=== PATIENT | male | born 1985 | race Caucasian/White ===

== ENCOUNTER 2016-04-23 18:12 | Emergency (ER) | payer OTHER ==
[~2016-04-23] VITALS: Ht 165.1 cm; Wt 69.6 kg
[~2016-04-23 18:12] MED LIST: HYDR-3533 PO; IBUP600 PO; TAMS0.4C67 PO; ZOFR4TAB3 SL
[2016-04-23 18:34] VITALS: BP 115/69; PULSE 97; RESP 20; O2SAT 99
--- NOTE | 2016-04-23 19:13 | PD ---
HPI Chief Complaint: Chest Pain Time Seen by Provider: 19:04 Travel History International Travel<30 days: No Contact w/Intl Traveler<30days: No Traveled to known affect area: No History of Present Illness HPI The patient is a 30-year-old male who complains of a sharp right upper quadrant abdominal pain associated with nausea but no diarrhea, vomiting or fever since noon today. He denies any melanotic or black stools. He does have a history of kidney stones. He has never had pain like this before. He still has his gallbladder and appendix. He does not have gallbladder disease in the family. PFSH Past Medical History Asthma: Yes Diminished Hearing: No Respiratory: Yes (ASTHMA) Immunizations Current: Yes Tetanus Vaccination: > 5 Years Influenza Vaccination: Yes Past Surgical History Abdominal Surgery: Yes (HERNIA REPAIR) Eye Surgery: Yes Tympanostomy Tube: Yes Social History Alcohol Use: Yes (RARELY) Tobacco Use: No Substance Use: No Allergies-Medications (Allergen,Severity, Reaction): Coded Allergies: Penicillin (Verified Allergy, Severe, AIRWAY COMPROMISE, 04/23/16) Reported Meds & Prescriptions Reported Meds & Active Scripts Active Reported Trazodone (Trazodone HCl) 50 Mg Tab 50 Mg PO HS Review of Systems Except as stated in HPI: all other systems reviewed are Neg Physical Exam Narrative GENERAL: The patient is alert, oriented 3 in slight apparent distress with his right upper quadrant pain area his vital signs are normal. SKIN: Warm and dry. No skin rash is present. HEAD: Atraumatic. Normocephalic. EYES: Pupils equal and round. No scleral icterus. No injection or drainage. ENT: No nasal bleeding or discharge. Mucous membranes pink and moist. NECK: Trachea midline. No JVD. CARDIOVASCULAR: Regular rate and rhythm. No murmur appreciated. RESPIRATORY: No accessory muscle use. Clear to auscultation. Breath sounds equal bilaterally. GASTROINTESTINAL: Abdomen soft, with tenderness to direct palpation in the right upper quadrant and Bonds sign is positive., nondistended. Hepatic and splenic margins not palpable. No guarding or rebound is present. MUSCULOSKELETAL: No obvious deformities. No clubbing. No cyanosis. No edema. NEUROLOGICAL: Awake and alert. No obvious cranial nerve deficits. Motor grossly within normal limits. Normal speech. PSYCHIATRIC: Appropriate mood and affect; insight and judgment normal. Data Data Last Documented VS Vital Signs Date Time Temp Pulse Resp B/P Pulse Ox O2 Delivery O2 Flow Rate FiO2 04/23/16 18:48 85 Room Air 04/23/16 18:34 20 115/69 99 Orders Complete Blood Count With Diff (04/23/16 19:14) Comprehensive Metabolic Panel (04/23/16 19:14) Lipase (04/23/16 19:14) Urinalysis - C+S If Indicated (04/23/16 19:14) Ct Abd/Pel W Iv Contrast(Rout) (04/23/16 19:14) Iv Access Insert/Monitor (04/23/16 19:14) Ecg Monitoring (04/23/16 19:14) Oximetry (04/23/16 19:14) Hydromorphone Pf Inj (Dilaudid Pf Inj) (04/23/16 19:15) Ondansetron Inj (Zofran Inj) (04/23/16 19:15) Sodium Chlor 0.9% 1000 Ml Inj (Ns 1000 M (04/23/16 19:14) Sodium Chloride 0.9% Flush (Ns Flush) (04/23/16 19:15) Iohexol 350 Inj (Omnipaque 350 Inj) (04/23/16 20:22) Labs Laboratory Tests Test 04/23/16 04/23/16 19:20 19:30 White Blood Count 7.6 TH/MM3 Red Blood Count 5.40 MIL/MM3 Hemoglobin 15.0 GM/DL Hematocrit 45.0 % Mean Corpuscular Volume 83.3 FL Mean Corpuscular Hemoglobin 27.9 PG Mean Corpuscular Hemoglobin 33.5 % Concent Red Cell Distribution Width 12.8 % Platelet Count 220 TH/MM3 Mean Platelet Volume 9.2 FL Neutrophils (%) (Auto) 66.7 % Lymphocytes (%) (Auto) 22.5 % Monocytes (%) (Auto) 6.7 % Eosinophils (%) (Auto) 0.9 % Basophils (%) (Auto) 3.2 % Neutrophils # (Auto) 5.1 TH/MM3 Lymphocytes # (Auto) 1.7 TH/MM3 Monocytes # (Auto) 0.5 TH/MM3 Eosinophils # (Auto) 0.1 TH/MM3 Basophils # (Auto) 0.2 TH/MM3 CBC Comment DIFF FINAL Differential Comment Sodium Level 139 MEQ/L Potassium Level 4.1 MEQ/L Chloride Level 103 MEQ/L Blood Urea Nitrogen 23 MG/DL Creatinine 1.00 MG/DL Estimat Glomerular Filtration 88 ML/MIN Rate Random Glucose 82 MG/DL Urine Collection Type VOIDED Urine Color STRAW Urine Turbidity SLIGHT Urine pH 7.0 Urine Specific [place] 1.018 Urine Protein NEG mg/dL Urine Glucose (UA) NEG mg/dL Urine Ketones NEG mg/dL Urine Occult Blood NEG Urine Nitrite NEG Urine Bilirubin NEG Urine Leukocyte Esterase NEG Urine Squamous Epithelial 0-5 /hpf Cells Urine Amorphous Sediment MOD Microscopic Urinalysis Comment CULT NOT INDICATED MDM Medical Decision Making Medical Screen Exam Complete: Yes Emergency Medical Condition: Yes Medical Record Reviewed: Yes Interpretation(s) The CT abdomen/pelvis with IV contrast shows no acute abnormality. There are small nonobstructing stones in both kidneys. The CBC is normal. The urinalysis is normal and culture is not indicated. Differential Diagnosis Cholecystitis, cholelithiasis with colic, pancreatitis, colitis, urinary stone Narrative Course The analyzer is broken here and it may be hours before we get a return on some of the blood testing. It is now 9 PM and the patient's pain is completely gone and he has no tenderness in the right upper quadrant. Plan: The patient will given a five-day work excuse, he is given Phenergan and Lortab 5 for pain and he should follow-up with his primary care physician as soon as possible, hopefully this week. Diagnosis Primary Impression: Abdominal pain of unknown etiology Additional Instructions: Ideally, you should follow-up with her primary care physician this week regarding this pain. The CT scan was normal but we still have not ruled out cholelithiasis with colic. At this time the pain has resolved but the pain can return. Do not drink alcohol or drive on the Phenergan or Lortab 5. Med/Other Pt SpecificInfo: Prescription(s) given Scripts Hydrocodone-Acetaminophen (Lortab)5-325 Mg Tab1 Tab PO Q4H PRN (PAIN) #28 TAB Ref 0 Prov:Prudencio Fuentes MD 04/23/16 Promethazine (Phenergan)25 Mg Tab25 Mg PO Q6H PRN (Nausea/Vomiting) #30 TAB Ref 0 Prov:Prudencio Fuentes MD 04/23/16 Disposition: 01 DISCHARGE HOME Condition: Stable Prudencio Fuentes MD Apr 23, 2016 19:13
[2016-04-23] MEDS ORDERED: SODIUM CHLOR 0.9% 1000 ML INJ 1,000 ML IV SCH (19:14)
[2016-04-23] MEDS ORDERED: ONDANSETRON HCL 4 MG/2 ML VIAL IVP ONE (19:15)
[2016-04-23] MEDS ORDERED: HYDROmorphone HCL PF 2 MG/ML VIAL IVS ONE (19:15)
[2016-04-23] MEDS ORDERED: SODIUM CHLORIDE 0.9% FLUSH 5 ML FLUSH IVF PRN (19:15)
[2016-04-23] MEDS ORDERED: TRAZ50TA12 PO (19:29)
[2016-04-23 19:47] LABS: AUTOMATED NEUTROPHIL # 5.1 TH/MM3 (1.8-7.7); BASOPHIL # 0.2 TH/MM3 (0-0.2); BASOPHIL % 3.2 % (0.0-2.0); EOSINOPHIL # 0.1 TH/MM3 (0-0.4); EOSINOPHIL % 0.9 % (0.0-4.0); HEMO FLAGS DIFF FINAL; LYMPH % 22.5 % (9.0-44.0); LYMPHOCYTE # 1.7 TH/MM3 (1.0-4.8); MEAN CELL VOLUME 83.3 FL (80.0-100.0); MEAN CORPUSCULAR HEMOGLOBIN 27.9 PG (27.0-34.0); MEAN CORPUSCULAR HGB CONC 33.5 % (32.0-36.0); MONO % 6.7 % (0.0-8.0); NEUT % 66.7 % (16.0-70.0); PLATELET COUNT 220 TH/MM3 (150-450); RED CELL DISTRIBUTION WIDTH 12.8 % (11.6-17.2); WHITE BLOOD COUNT 7.6 TH/MM3 (4.0-11.0)
[2016-04-23 19:56] LABS: BLOOD, URINE NEG (NEG); GLUCOSE,URINE NEG (NEG); KETONE, URINE NEG (NEG); NITRITE,URINE NEG (NEG)
[2016-04-23 20:02] LABS: METHOD OF COLLECTION VOIDED; SQUAMOUS EPITHELIAL CELL URINE 0-5 /hpf (0-5); URINE COLOR STRAW (YELLW/STRAW)
[2016-04-23 20:03] LABS: COMMENT (UR) CULT NOT INDICATED; CULTURE IF INDICATED CULT NOT INDICATED
[2016-04-23 20:05] LABS: GLOMERULAR FILTRATION RATE 88 ML/MIN (>89)
[2016-04-23 20:06] LABS: BLOOD UREA NITROGEN 23 MG/DL (7-18); CHLORIDE 103 MEQ/L (98-107); POTASSIUM 4.1 MEQ/L (3.5-5.1); SODIUM (NA) 139 MEQ/L (136-145)
[2016-04-23] MEDS ORDERED: IOHEXOL 350 MG/ML 10 ML VIAL (for RAD DIAG) IV ONE (20:22)
--- NOTE | 2016-04-23 20:36 | RADHPO ---
EXAM DATE/TIME: 04/23/2016 20:17 [facility] COMPARISON: CT ABDOMEN & PELVIS W/O CONTRAST, April 15, 2015, 5:32. INDICATIONS : Abdomen pain. IV CONTRAST: 80 cc Omnipaque 350 (iohexol) IV ORAL CONTRAST: No oral contrast ingested. RADIATION DOSE: 7.31 CTDIvol (mGy) MEDICAL HISTORY : None SURGICAL HISTORY : Hernia repair. ENCOUNTER: Initial ACUITY: 1 day PAIN SCALE: 5/10 LOCATION: Right abdomen. TECHNIQUE: Volumetric scanning of the abdomen and pelvis was performed. Using automated exposure control and ad justment of the mA and/or kV according to patient size, radiation dose was kept as low as reasonably achievable to obtain optimal diagnostic quality images. FINDINGS: LOWER LUNGS: The visualized lower lungs are clear. LIVER: Homogeneous density without lesion. There is no dilation of the biliary tree. No calcified gallston es. SPLEEN: Normal size without lesion. PANCREAS: Within normal limits. KIDNEYS: Nonobstructing 3 mm stones right mid zone and left lower pole. No ureteral calculus, hydronephrosis o r hydroureter on either side. ADRENAL GLANDS: Within normal limits. VASCULAR: There is no aortic aneurysm. BOWEL/MESENTERY: The stomach, small bowel, and colon demonstrate no acute abnormality. There is no free intraperitone al air or fluid. Appendix well visualized, normal. ABDOMINAL WALL: Within normal limits. RETROPERITONEUM: There is no lymphadenopathy. BLADDER: No wall thickening or mass. REPRODUCTIVE: Within normal limits. INGUINAL: There is no lymphadenopathy or hernia. MUSCULOSKELETAL: Within normal limits for patient age. CONCLUSION: No acute abnormality demonstrated. Small, nonobstructing stones in both kidneys. Armando Mckinney MD on April 23, 2016 at 20:32 Board Certified Radiologist. This report was verified electronically.
[2016-04-23] MEDS ORDERED: HYDR-3533 PO (21:00)
[2016-04-23] MEDS ORDERED: PROM25TA5 PO (21:00)
[2016-04-23 21:18] VITALS: BP 127/82
[2016-04-23 21:38] LABS: ALKALINE PHOSPHATASE 62 U/L (45-117); ALT (GPT) 14 U/L (12-78); ANION GAP 10 MEQ/L (5-15); AST (GOT) 8 U/L (15-37); BICARBONATE 26.2 MEQ/L (21.0-32.0); TOTAL BILIRUBIN ADULT 0.3 MG/DL (0.2-1.0)
== END 2016-04-23 21:20 | disposition home or self-care (01) ==
LOC: PHED 18:12
DX: R10.11 Right upper quadrant pain (principal)
CPT/HCPCS: 74177; 80053; 81001; 83690; 85025; 96361; 96374; 96375; 99284; J1170; J2405; J7030; Q9967

== ENCOUNTER 2017-08-01 18:40 | Emergency (ER) | payer OTHER ==
[~2017-08-01] VITALS: Ht 162.6 cm; Wt 70.0 kg
[~2017-08-01 18:40] MED LIST changes: -IBUP600 PO; +PROM25TA5 PO; -TAMS0.4C67 PO; +TRAZ50TA12 PO; -ZOFR4TAB3 SL
[2017-08-01 18:42] VITALS: BP 134/77; PULSE 106; RESP 17; TEMP 98.1; O2SAT 97
[2017-08-01] MEDS ORDERED: IBUP-232 PO (23:04)
[2017-08-01] MEDS ORDERED: PERC5TAB12 PO (23:04)
[2017-08-01] MEDS ORDERED: TAMS5CAP PO (23:04)
== END 2017-08-01 21:21 | disposition left against medical advice (07) ==
LOC: NED 18:40
DX: R30.0 Dysuria (principal)
CPT/HCPCS: 99281

== ENCOUNTER 2017-08-01 20:02 | Emergency (ER) | payer OTHER ==
[~2017-08-01] VITALS: Ht 165.1 cm; Wt 71.6 kg
[2017-08-01 20:12] VITALS: RESP 16; O2SAT 98
[2017-08-01 20:28] VITALS: BP 143/89; PULSE 96; RESP 18; TEMP 99.3; O2SAT 98
[2017-08-01 21:36] LABS: BILIRUBIN, URINE NEG (NEG); BLOOD, URINE LARGE (NEG); GLUCOSE,URINE NEG (NEG); KETONE, URINE NEG (NEG); NITRITE,URINE NEG (NEG); URINE COLOR RED (YELLW/STRAW); URINE LEUKOCYTE ESTERASE NEG (NEG)
[2017-08-01 21:37] LABS: RBC, URINE INNUM /hpf (0-3); SQUAMOUS EPITHELIAL CELL URINE 0-5 /hpf (0-5)
[2017-08-01] MEDS ORDERED: SODIUM CHLOR 0.9% 1000 ML INJ 1,000 ML IV SCH (21:39)
--- NOTE | 2017-08-01 21:44 | PD ---
HPI Chief Complaint: Flank/Kidney Pain Time Seen by Provider: 21:30 Travel History International Travel<30 days: No Contact w/Intl Traveler<30days: No Traveled to known affect area: No History of Present Illness HPI Patient is a 31-year-old male who presents to emergency room with complaints of left-sided flank pain with hematuria. Patient reports that tonight, he was at a baseball game when he had pain to his left flank. reports that when he urinated, he noticed britton bright red blood in his urine. Patient reports history of kidney stones in the past and he does follow-up with urologist, last kidney stone was 2 years ago. Patient reports that he has never required intervention for his kidney stones. Patient reports nausea and vomiting, denies any fevers and chills. Reports that when he is onset of pain, pain is moderate to severe nature. PFSH Past Medical History Asthma: Yes Diminished Hearing: No Respiratory: Yes (ASTHMA) Immunizations Current: Yes Past Surgical History Abdominal Surgery: Yes (HERNIA REPAIR) Eye Surgery: Yes Tympanostomy Tube: Yes Social History Alcohol Use: Yes (RARELY) Tobacco Use: No Substance Use: No Allergies-Medications (Allergen,Severity, Reaction): Coded Allergies: penicillin G (Unverified Allergy, Severe, AIRWAY COMPROMISE, 08/01/17) Reported Meds & Prescriptions Reported Meds & Active Scripts Active Ibuprofen 600 Mg Tab 600 Mg PO Q6H PRN Flomax (Tamsulosin HCl) 0.4 Mg Cap 0.4 Mg PO HS Percocet (Oxycodone-Acetaminophen) 5-325 mg Tab 1 Tab PO Q6H PRN Lortab (Hydrocodone-Acetaminophen) 5-325 Mg Tab 1 Tab PO Q4H PRN Phenergan (Promethazine HCl) 25 Mg Tab 25 Mg PO Q6H PRN Reported Trazodone (Trazodone HCl) 50 Mg Tab 50 Mg PO HS Review of Systems General / Constitutional: No: Fever Eyes: No: Visual changes HENT: No: Headaches Cardiovascular: No: Chest Pain or Discomfort Respiratory: No: Shortness of Breath Gastrointestinal: No: Abdominal Pain Genitourinary: Positive: Hematuria, Flank Pain, No: Dysuria Musculoskeletal: No: Pain Skin: No Rash Neurologic: No: Weakness Psychiatric: No: Depression Endocrine: No: Polydipsia Hematologic/Lymphatic: No: Easy Bruising Physical Exam Narrative GENERAL: Mild distress SKIN: Focused skin assessment warm/dry. HEAD: Atraumatic. Normocephalic. EYES: Pupils equal and round. No scleral icterus. No injection or drainage. ENT: No nasal bleeding or discharge. Mucous membranes pink and moist. NECK: Trachea midline. No JVD. CARDIOVASCULAR: Regular rate and rhythm. No murmur appreciated. RESPIRATORY: No accessory muscle use. Clear to auscultation. Breath sounds equal bilaterally. GASTROINTESTINAL: Abdomen soft, non-tender, nondistended. Hepatic and splenic margins not palpable. Patient with left-sided flank pain exam MUSCULOSKELETAL: No obvious deformities. No clubbing. No cyanosis. No edema. NEUROLOGICAL: Awake and alert. No obvious cranial nerve deficits. Motor grossly within normal limits. Normal speech. PSYCHIATRIC: Appropriate mood and affect; insight and judgment normal. Data Data Last Documented VS Vital Signs Date Time Temp Pulse Resp B/P (MAP) Pulse Ox O2 Delivery O2 Flow Rate FiO2 08/01/17 23:13 16 08/01/17 22:45 97 140/78 (98) 97 Room Air 08/01/17 20:28 99.3 Orders Orders Urinalysis - C+S If Indicated (08/01/17 20:45) Complete Blood Count With Diff (08/01/17 21:39) Comprehensive Metabolic Panel (08/01/17 21:39) Prothrombin Time / Inr (Pt) (08/01/17 21:39) Act Partial Throm Time (Ptt) (08/01/17 21:39) Ct Abd/Pel W/O Iv Contrast (08/01/17 21:39) Iv Access Insert/Monitor (08/01/17 21:39) Ecg Monitoring (08/01/17 21:39) Oximetry (08/01/17 21:39) Morphine Inj (Morphine Inj) (08/01/17 21:45) Ondansetron Inj (Zofran Inj) (08/01/17 21:45) Sodium Chlor 0.9% 1000 Ml Inj (Ns 1000 M (08/01/17 21:39) Sodium Chloride 0.9% Flush (Ns Flush) (08/01/17 21:45) Strain Urine PRN (08/01/17 23:03) Ed Discharge Order (08/01/17 23:08) Labs Laboratory Tests Test 08/01/17 20:40 08/01/17 22:12 Urine Color RED Urine Turbidity CLOUDY Urine pH 6.0 Urine Specific [place] 1.025 Urine Protein 100 mg/dL Urine Glucose (UA) NEG mg/dL Urine Ketones NEG mg/dL Urine Occult Blood LARGE Urine Nitrite NEG Urine Bilirubin NEG Urine Urobilinogen 1.0 MG/DL Urine Leukocyte Esterase NEG Urine RBC INNUM /hpf Urine WBC 3-5 /hpf Urine Squamous Epithelial Cells 0-5 /hpf Urine Bacteria NONE /hpf Microscopic Urinalysis Comment CULT NOT INDICATED White Blood Count 8.8 TH/MM3 Red Blood Count 5.56 MIL/MM3 Hemoglobin 16.1 GM/DL Hematocrit 47.8 % Mean Corpuscular Volume 86.0 FL Mean Corpuscular Hemoglobin 29.1 PG Mean Corpuscular Hemoglobin Concent 33.8 % Red Cell Distribution Width 11.8 % Platelet Count 206 TH/MM3 Mean Platelet Volume 9.0 FL Neutrophils (%) (Auto) 83.0 % Lymphocytes (%) (Auto) 11.8 % Monocytes (%) (Auto) 3.7 % Eosinophils (%) (Auto) 0.4 % Basophils (%) (Auto) 1.1 % Neutrophils # (Auto) 7.4 TH/MM3 Lymphocytes # (Auto) 1.0 TH/MM3 Monocytes # (Auto) 0.3 TH/MM3 Eosinophils # (Auto) 0.0 TH/MM3 Basophils # (Auto) 0.1 TH/MM3 CBC Comment DIFF FINAL Differential Comment Prothrombin Time 12.0 SEC Prothromb Time International Ratio 1.2 RATIO Activated Partial Thromboplast Time 30.1 SEC Blood Urea Nitrogen 17 MG/DL Creatinine 1.20 MG/DL Random Glucose 88 MG/DL Total Protein 7.9 GM/DL Albumin 4.5 GM/DL Calcium Level 9.5 MG/DL Alkaline Phosphatase 54 U/L Aspartate Amino Transf (AST/SGOT) 14 U/L Alanine Aminotransferase (ALT/SGPT) 15 U/L Total Bilirubin 0.6 MG/DL Sodium Level 136 MEQ/L Potassium Level 4.0 MEQ/L Chloride Level 103 MEQ/L Carbon Dioxide Level 27.0 MEQ/L Anion Gap 6 MEQ/L Estimat Glomerular Filtration Rate 71 ML/MIN MDM Medical Decision Making Medical Screen Exam Complete: Yes Emergency Medical Condition: Yes Medical Record Reviewed: Yes Interpretation(s) Vital Signs Date Time Temp Pulse Resp B/P (MAP) Pulse Ox O2 Delivery O2 Flow Rate FiO2 08/01/17 20:28 99.3 96 18 143/89 (107) 98 Differential Diagnosis Kidney stone, UTI, pyelonephritis Narrative Course 31-year-old male presents to emergency room with complaints of left-sided flank pain which began tonight, patient reports that pain associated with hematuria, he does have history of kidney stones in the past, he has never required any urological intervention for removal of kidney stones as he has passed them by himself. During the course of the patients emergency department visit, the patients history, examination, and differential diagnosis were reviewed with the patient. The patient was placed on a ekg monitor tech with oximetry and frequent blood pressure monitoring. The patient had an IV access obtained and blood work sent for analysis. The patient was initially provided IV fluids, IV Zofran as well as IV morphine The patients laboratory studies were reviewed and remarkable for: Laboratory Tests Test 08/01/17 20:40 08/01/17 22:12 Urine Color RED (YELLW/STRAW) Urine Turbidity CLOUDY (CLEAR) Urine pH 6.0 (5.0-8.5) Urine Specific [place] 1.025 (1.002-1.035) Urine Protein 100 mg/dL (NEG-TRACE) Urine Glucose (UA) NEG mg/dL (NEG) Urine Ketones NEG mg/dL (NEG) Urine Occult Blood LARGE (NEG) Urine Nitrite NEG (NEG) Urine Bilirubin NEG (NEG) Urine Urobilinogen 1.0 MG/DL (LESS THAN Urine Leukocyte Esterase NEG (NEG) Urine RBC INNUM /hpf (0-3) Urine WBC 3-5 /hpf (0-5) Urine Squamous Epithelial Cells 0-5 /hpf (0-5) Urine Bacteria NONE /hpf (NONE) Microscopic Urinalysis Comment CULT NOT INDICATED White Blood Count 8.8 TH/MM3 (4.0-11.0) Red Blood Count 5.56 MIL/MM3 (4.50-5.90) Hemoglobin 16.1 GM/DL (13.0-17.0) Hematocrit 47.8 % (39.0-51.0) Mean Corpuscular Volume 86.0 FL (80.0-100.0) Mean Corpuscular Hemoglobin 29.1 PG (27.0-34.0) Mean Corpuscular Hemoglobin Concent 33.8 % (32.0-36.0) Red Cell Distribution Width 11.8 % (11.6-17.2) Platelet Count 206 TH/MM3 (150-450) Mean Platelet Volume 9.0 FL (7.0-11.0) Neutrophils (%) (Auto) 83.0 % (16.0-70.0) Lymphocytes (%) (Auto) 11.8 % (9.0-44.0) Monocytes (%) (Auto) 3.7 % (0.0-8.0) Eosinophils (%) (Auto) 0.4 % (0.0-4.0) Basophils (%) (Auto) 1.1 % (0.0-2.0) Neutrophils # (Auto) 7.4 TH/MM3 (1.8-7.7) Lymphocytes # (Auto) 1.0 TH/MM3 (1.0-4.8) Monocytes # (Auto) 0.3 TH/MM3 (0-0.9) Eosinophils # (Auto) 0.0 TH/MM3 (0-0.4) Basophils # (Auto) 0.1 TH/MM3 (0-0.2) CBC Comment DIFF FINAL Differential Comment Prothrombin Time 12.0 SEC (9.8-11.6) Prothromb Time International Ratio 1.2 RATIO Activated Partial Thromboplast Time 30.1 SEC (24.3-30.1) Blood Urea Nitrogen 17 MG/DL (7-18) Creatinine 1.20 MG/DL (0.60-1.30) Random Glucose 88 MG/DL (74-106) Albumin 4.5 GM/DL (3.4-5.0) Calcium Level 9.5 MG/DL (8.5-10.1) Aspartate Amino Transf (AST/SGOT) 14 U/L (15-37) Alanine Aminotransferase (ALT/SGPT) 15 U/L (12-78) Total Bilirubin 0.6 MG/DL (0.2-1.0) Sodium Level 136 MEQ/L (136-145) Potassium Level 4.0 MEQ/L (3.5-5.1) Chloride Level 103 MEQ/L (98-107) Carbon Dioxide Level 27.0 MEQ/L (21.0-32.0) Anion Gap 6 MEQ/L (5-15) Estimat Glomerular Filtration Rate 71 ML/MIN (>89) Radiology studies were reviewed and remarkable for Last Impressions Abdomen/Pelvis CT 08/01/174 Signed Impressions: Service Date/Time: July 21:50 - CONCLUSION: 1. Proximal left ureteral calculus measuring 4-5 mm in size with no current obstruction. 2. Multiple bilateral tiny renal calculi. Aroldo Gill MD Patient with left-sided ureteral calculus measuring 4-5 mm in size with no current obstruction. Creatinine is 1.20, BUN 17, sodium 136, potassium 4.0, glucose 88, LFTs are within normal limits. UA is positive for large blood, innumerable white blood cells, 0-3 white blood cells, negative nitrites, negative leukoesterase. Patient with left ureteral calculus which is nonobstructing. Discussed with patient need to strain his urine, we will start him on Flomax. Patient will be sent home with a prescription for Percocet as well as Motrin for pain control. Plan to have patient follow-up at this urologist and return to the emergency room as needed. Signs and symptoms of when to return to the emergency room was reviewed with patient in detail. Diagnosis Primary Impression: Kidney stone on left side Additional Impression: Hematuria Patient Instructions: Narcotic given in the ED, General Instructions Additional Instructions: Please provide patient with a copy of their lab work and studies at discharge* * Please follow up with your primary care doctor in 2-3 days Return to the ER if symptoms worsen or progress Return to the ER as needed Please follow up with your urologist as soon as possible Strain your urine Med/Other Pt SpecificInfo: Prescription(s) given Scripts Ibuprofen (Ibuprofen) 600 Mg Tab 600 MG PO Q6H Y for Pain/Inflammation, #40 TAB 0 Refills Prov: Caroline Cast DO 08/01/17 Tamsulosin (Flomax) 0.4 Mg Cap 0.4 MG PO HS for Manage Prostate Problems, #30 CAP 0 Refills Prov: Caroline Cast DO 08/01/17 Oxycodone-Acetaminophen (Percocet) 5-325 mg Tab 1 TAB PO Q6H Y for PAIN, #12 TAB 0 Refills Prov: Caroline Cast DO 08/01/17 Disposition: 01 DISCHARGE HOME Condition: Stable Caroline Cast DO Aug 01, 2017 21:44
[2017-08-01] MEDS ORDERED: SODIUM CHLORIDE 0.9% FLUSH 10 ML FLUSH IV FLUSH PRN (21:45)
[2017-08-01] MEDS ORDERED: MORPHINE SULFATE 4 MG/ML INJ IV PUSH ONE (21:45)
[2017-08-01] MEDS ORDERED: ONDANSETRON HCL 4 MG/2 ML VIAL IVP ONE (21:45)
--- NOTE | 2017-08-01 22:10 | RADRPT ---
EXAM DATE/TIME: 08/01/2017 21:50 [facility] COMPARISON: CT ABDOMEN & PELVIS W/O CONTRAST, April 15, 2015, 5:32. INDICATIONS : Left flank pain. Gross hematuria. Known renal calculi. ORAL CONTRAST: No oral contrast ingested. RADIATION DOSE: 6.17 CTDIvol (mGy) MEDICAL HISTORY : None SURGICAL HISTORY : Hernia repair. ENCOUNTER: Initial ACUITY: 1 day PAIN SCALE: 8/10 LOCATION: Left flank TECHNIQUE: Volumetric scanning of the abdomen and pelvis was performed. Using automated exposure control and ad justment of the mA and/or kV according to patient size, radiation dose was kept as low as reasonably achievable to obtain optimal diagnostic quality images. DICOM format image data is available electro nically for review and comparison. FINDINGS: LOWER LUNGS: The visualized lower lungs are clear. LIVER: Homogeneous density without lesion. There is no dilation of the biliary tree. No calcified gallston es. SPLEEN: Normal size without lesion. PANCREAS: Within normal limits. KIDNEYS: Normal in size and shape. There are multiple trainee bilateral renal calculi. There is a proximal lef t ureteral calculus measuring up to approximately 4-5 mm in greatest diameter. ADRENAL GLANDS: Within normal limits. VASCULAR: There is no aortic aneurysm. BOWEL/MESENTERY: The stomach, small bowel, and colon demonstrate no acute abnormality. There is no free intraperitone al air or fluid. ABDOMINAL WALL: Within normal limits. RETROPERITONEUM: There is no lymphadenopathy. BLADDER: No wall thickening or mass. REPRODUCTIVE: Within normal limits. INGUINAL: There is no lymphadenopathy or hernia. MUSCULOSKELETAL: Within normal limits for patient age. CONCLUSION: 1. Proximal left ureteral calculus measuring 4-5 mm in size with no current obstruction. 2. Multiple bilateral tiny renal calculi. Aroldo Gill MD on August 01, 2017 at 22:03 Board Certified Radiologist. This report was verified electronically.
[2017-08-01 22:20] LABS: AUTOMATED NEUTROPHIL # 7.4 TH/MM3 (1.8-7.7); BASOPHIL # 0.1 TH/MM3 (0-0.2); BASOPHIL % 1.1 % (0.0-2.0); EOSINOPHIL % 0.4 % (0.0-4.0); HEMATOCRIT 47.8 % (39.0-51.0); HEMOGLOBIN 16.1 GM/DL (13.0-17.0); LYMPH % 11.8 % (9.0-44.0); MEAN CORPUSCULAR HEMOGLOBIN 29.1 PG (27.0-34.0); MEAN CORPUSCULAR HGB CONC 33.8 % (32.0-36.0); MONO % 3.7 % (0.0-8.0); MONOCYTE # 0.3 TH/MM3 (0-0.9); PLATELET COUNT 206 TH/MM3 (150-450); RED BLOOD COUNT 5.56 MIL/MM3 (4.50-5.90); RED CELL DISTRIBUTION WIDTH 11.8 % (11.6-17.2); WHITE BLOOD COUNT 8.8 TH/MM3 (4.0-11.0)
[2017-08-01 22:28] LABS: CHLORIDE 103 MEQ/L (98-107); SODIUM (NA) 136 MEQ/L (136-145)
[2017-08-01 22:31] LABS: ALBUMIN 4.5 GM/DL (3.4-5.0); CALCIUM 9.5 MG/DL (8.5-10.1)
[2017-08-01 22:32] LABS: BLOOD UREA NITROGEN 17 MG/DL (7-18); GLUCOSE,RANDOM 88 MG/DL (74-106); INTERNATIONAL NORMALIZED RATIO 1.2 RATIO
[2017-08-01 22:35] LABS: ALT (GPT) 15 U/L (12-78); AST (GOT) 14 U/L (15-37); GLOMERULAR FILTRATION RATE 71 ML/MIN (>89)
[2017-08-01 22:36] LABS: TOTAL BILIRUBIN ADULT 0.6 MG/DL (0.2-1.0)
[2017-08-01 22:37] LABS: TOTAL PROTEIN 7.9 GM/DL (6.4-8.2)
[2017-08-01 22:38] LABS: ALKALINE PHOSPHATASE 54 U/L (45-117)
[2017-08-01 22:45] VITALS: BP 140/78; PULSE 97; RESP 16; O2SAT 97
[2017-08-01] MEDS ORDERED: IBUP-232 PO (23:04)
[2017-08-01] MEDS ORDERED: PERC5TAB12 PO (23:04)
[2017-08-01] MEDS ORDERED: TAMS5CAP PO (23:04)
[2017-08-01 23:13] VITALS: RESP 16
[2017-08-02 00:02] VITALS: BP 122/68
== END 2017-08-02 00:03 | disposition home or self-care (01) ==
LOC: PEMP 20:02 → PHED 08-02 00:03
DX: N20.2 Calculus of kidney with calculus of ureter (principal); R31.9 Hematuria, unspecified; J45.909 Unspecified asthma, uncomplicated; Z87.442 Personal history of urinary calculi
CPT/HCPCS: 74176; 80053; 81001; 85025; 85610; 85730; 96361; 96374; 96375; 99284; J2270; J2405; J7030

== ENCOUNTER 2017-08-29 23:09 | Emergency (ER) | payer OTHER ==
[~2017-08-29] VITALS: Ht 165.1 cm; Wt 72.7 kg
[~2017-08-29 23:09] MED LIST changes: +IBUP-232 PO; +PERC5TAB12 PO; +TAMS5CAP PO
[2017-08-29 23:13] VITALS: BP 135/76; PULSE 85; RESP 18; TEMP 98.9; O2SAT 99
[2017-08-30] MEDS ORDERED: ZOFR4TAB3 SL (00:58)
--- NOTE | 2017-08-30 00:59 | PD ---
HPI Chief Complaint: Complaint Time Seen by Provider: 00:57 Travel History International Travel<30 days: No Contact w/Intl Traveler<30days: No Traveled to known affect area: No History of Present Illness HPI 31-year-old male patient with history of left-sided kidney stone that is 5 mm, had a CAT scan 3 days ago which shows that the stone had moved down his ureter, and has a urologist that he has been following up with, presents to the ER today because he has had 2 days history of blood in his urine and dysuria. He denies any abdominal pains, fevers, or other symptoms. Modifying Factors: None Associated Signs & Symptoms: Blood in the urine, urinary symptoms Risk Factors: Left-sided kidney stone diagnosed 3 weeks ago PFSH Past Medical History Asthma: Yes Diminished Hearing: No Respiratory: Yes (ASTHMA) Immunizations Current: Yes Past Surgical History Abdominal Surgery: Yes (HERNIA REPAIR) Ear Surgery: Yes Eye Surgery: Yes Oral Surgery: Yes Tonsillectomy: Yes (ADENOIDS) Tympanostomy Tube: Yes Social History Alcohol Use: Yes (RARELY) Tobacco Use: No Substance Use: No Allergies-Medications (Allergen,Severity, Reaction): Coded Allergies: penicillin G (Unverified Allergy, Severe, AIRWAY COMPROMISE, 08/30/17) Reported Meds & Prescriptions Reported Meds & Active Scripts Active Ibuprofen 600 Mg Tab 600 Mg PO Q6H PRN Flomax (Tamsulosin HCl) 0.4 Mg Cap 0.4 Mg PO HS Percocet (Oxycodone-Acetaminophen) 5-325 mg Tab 1 Tab PO Q6H PRN Reported Zofran Odt (Ondansetron Odt) 4 Mg Tab 4 Mg SL Q6HR PRN Review of Systems Except as stated in HPI: all other systems reviewed are Neg Physical Exam Narrative GENERAL: Well-developed young male patient currently in mild distress. Awake and oriented 3. SKIN: Focused skin assessment warm/dry. HEAD: Atraumatic. Normocephalic. EYES: Pupils equal and round. No scleral icterus. No injection or drainage. ENT: No nasal bleeding or discharge. Mucous membranes pink and moist. NECK: Trachea midline. No JVD. CARDIOVASCULAR: Regular rate and rhythm. No murmur appreciated. RESPIRATORY: No accessory muscle use. Clear to auscultation. Breath sounds equal bilaterally. GASTROINTESTINAL: Abdomen soft, mild left lower quadrant tenderness without guarding or rebound, nondistended. Hepatic and splenic margins not palpable. BACK: No CVA tenderness. No rash. No point tenderness on palpation of the spine. MUSCULOSKELETAL: No obvious deformities. No clubbing. No cyanosis. No edema. NEUROLOGICAL: Awake and alert. No obvious cranial nerve deficits. Motor grossly within normal limits. Normal speech. PSYCHIATRIC: Appropriate mood and affect; insight and judgment normal. Data Data Last Documented VS Vital Signs Date Time Temp Pulse Resp B/P (MAP) Pulse Ox O2 Delivery O2 Flow Rate FiO2 08/29/17 23:13 98.9 85 18 135/76 (95) 99 Orders Orders Urinalysis - C+S If Indicated (08/30/17 00:57) Ed Discharge Order (08/30/17 01:27) Sulfamet-Trimeth Ds 800-160 Mg (Bactrim (08/30/17 01:30) Labs Laboratory Tests Test 08/30/17 00:50 Urine Color RED Urine Turbidity CLOUDY Urine pH 7.5 Urine Specific [place] 1.020 Urine Protein 100 mg/dL Urine Glucose (UA) NEG mg/dL Urine Ketones TRACE mg/dL Urine Occult Blood LARGE Urine Nitrite POS Urine Bilirubin NEG Urine Urobilinogen 1.0 MG/DL Urine Leukocyte Esterase TRACE Urine RBC 100-200 /hpf Urine WBC 3-5 /hpf Urine Squamous Epithelial Cells 0-5 /hpf Microscopic Urinalysis Comment CULT NOT INDICATED MDM Medical Decision Making Medical Screen Exam Complete: Yes Emergency Medical Condition: Yes Medical Record Reviewed: Yes Interpretation(s) Laboratory Tests Test 08/30/17 00:50 Urine Color RED (YELLW/STRAW) Urine Turbidity CLOUDY (CLEAR) Urine Protein 100 mg/dL (NEG-TRACE) Urine Ketones TRACE mg/dL (NEG) Urine Occult Blood LARGE (NEG) Urine Nitrite POS (NEG) Urine Leukocyte Esterase TRACE (NEG) Urine RBC 100-200 /hpf (0-3) Differential Diagnosis Renal colic versus UTI Narrative Course UA shows significant blood, positive for nitrite and at this point, concerning symptoms for UTI. Otherwise, he has a known kidney stone and is following up with his urologist. My plan would be to treat his UTI and have him follow-up with urology. Return for new issues as needed. The plan has been discussed with the patient he states understanding. Diagnosis Primary Impression: UTI (urinary tract infection) Med/Other Pt SpecificInfo: Prescription(s) given Scripts Sulfamethoxazole-Trimethoprim (Bactrim DS) 800-160 Mg Tab 1 TAB PO BID for Infection, #14 TAB 0 Refills Prov: Melly Klein MD 08/30/17 Disposition: 01 DISCHARGE HOME Condition: Stable Melly Klein MD August 30, 2017 00:59
[2017-08-30 01:10] LABS: BILIRUBIN, URINE NEG (NEG); BLOOD, URINE LARGE (NEG); GLUCOSE,URINE NEG (NEG); KETONE, URINE TRACE mg/dL (NEG); NITRITE,URINE POS (NEG); PH, URINE 7.5 (5.0-8.5); URINE LEUKOCYTE ESTERASE TRACE (NEG)
[2017-08-30 01:12] LABS: URINE COLOR RED (YELLW/STRAW)
[2017-08-30 01:15] LABS: RBC, URINE 100-200 /hpf (0-3); SQUAMOUS EPITHELIAL CELL URINE 0-5 /hpf (0-5)
[2017-08-30] MEDS ORDERED: BACT800T5 PO (01:29)
[2017-08-30] MEDS ORDERED: SULFAMETHOXAZOLE-TRIMETHOPRIM DS 800-160 MG TAB PO ONE (01:30)
== END 2017-08-30 01:35 | disposition home or self-care (01) ==
LOC: PHED 23:09
DX: N39.0 Urinary tract infection, site not specified (principal); J45.909 Unspecified asthma, uncomplicated; Z88.0 Allergy status to penicillin; Z79.899 Other long term (current) drug therapy
CPT/HCPCS: 81001; 99283